=== PATIENT | female | born 1985 | race Caucasian/White ===

== ENCOUNTER 2017-02-05 22:19 | Emergency (ER) | payer MEDICAID ==
--- NOTE | 2017-02-05 22:32 | Emergency Department Record ---
History of Present Illness - General Chief Complaint: Abdominal Pain Stated Complaint: LOWER ABD PAIN Time Seen by Provider: 02/05/17 22:30 Source: Patient Mode of Arrival: Ambulatory Limitations: No limitations - History of Present Illness Initial Comments: The patient has had sharp stabbing pelvic pain bilaterally off and on for 2-3 days. The pain intermittently radiates to the R back. She denies any dysuria, vaginal discharge or bleeding. She did contact her OB and was told it may be an ovarian problem but was unable to be seen in the office. The patient's last menses was a month ago. MD Complaint: Abdominal pain Onset/Timin -: Days(s) Location: Suprapubic Radiation: Back Severity: Moderate Consistency: Intermittent Improves With: Rest Worsens With: Movement Associated Symptoms: Nausea - Related Data LMP (females 10-50): 1 month ago Home Medications Medication Instructions Recorded Confirmed Last Taken Albuterol Sulfate [Ventolin Hfa] 1 - 2 puff IH .EVERY 4-6 HOURS PRN 02/05/1707/24 Unknown Montelukast Sodium [Singulair] 10 mg PO QHS 02/05/17 02/05/17 Unknown Previous Rx's Medication Instructions Recorded Metronidazole [Flagyl] 500 mg PO BID #14 tablet 02/05/17 Naproxen [Naprosyn] 250 mg PO BID #14 tablet 02/05/17 Allergies Allergy/AdvReac Type Severity Reaction Status Date / Time cefaclor [From Ceclor] Allergy HIVES Verified 02/05/17 22:30 Travel Screening - Travel/Exposure Within Last 30 Days Have you traveled within the last 30 days?: No - Travel/Exposure Within Last Year Have you traveled outside the [place] in the last year?: No - Additonal Travel Details Have you been exposed to anyone with a communicable illness?: No - Travel Symptoms Symptom Screening: None Review of Systems Constitutional: Denies: Chills, Fever Eyes: Denies: Eye discharge ENT: Denies: Congestion Respiratory: Denies: Cough, Dyspnea Past Medical History - SOCIAL HISTORY Smoking Status: Never smoker Alcohol Use: Occasional Drug Use: None - RESPIRATORY Hx Respiratory Disorders: Yes Hx Asthma: Yes - CARDIOVASCULAR Hx Cardio Disorders: No - NEURO Hx Neuro Disorders: No - GI Hx GI Disorders: No - Hx Genitourinary Disorders: No - ENDOCRINE Hx Endocrine Disorders: No - MUSCULOSKELETAL Hx Musculoskeletal Disorders: No - PSYCH Hx Psych Problems: No - HEMATOLOGY/ONCOLOGY Hx Hematology/Oncology Disorders: No Family Medical History Any Significant Family History?: No Physical Exam - General General Appearance: Alert, Oriented x3, Cooperative, No acute distress - Head Head exam: Atraumatic, Normocephalic, Normal inspection - Eye Eye exam: Normal appearance, PERRL - Neck Neck exam: Normal inspection, Full ROM. negative: Tenderness - Respiratory Respiratory exam: Normal lung sounds bilaterally. negative: Respiratory distress - Cardiovascular Cardiovascular Exam: Regular rate, Normal rhythm, Normal heart sounds - GI/Abdominal GI/Abdominal exam: Soft, Tenderness (There is mild lower abdominal tenderness bilaterally with a very soft abdomen.). negative: Distended, Rebound, Rigid - exam: Normal bimanual exam, Normal external exam, Normal speculum exam. negative: Adnexal mass (L), Adnexal mass (R), Adnexal tenderness (L), Adnexal tenderness (R), Cervical discharge, cervical motion tenderness, Enlarged uterus , Vaginal bleeding, Vaginal discharge, Vaginal erythema - Extremities Extremities exam: Normal inspection, Full ROM, Normal capillary refill. negative: Tenderness - Neurological Neurological exam: Alert, Normal gait. negative: Abnormal gait, Motor sensory deficit Course Vital Signs 02/05/17 22:21 Temperature 98.3 F Pulse Rate 72 Respiratory 20 Rate Blood Pressure 144/90 Pulse Ox 96 - Reevaluation(s) Reevaluation #1: The patient is doing very well at this time. Her pain is pretty much gone at this time. On exam her abdomen is soft and nontender in all 4 quads. I did explain to her the need for a pelvic US which we are unable to perform tonight. Due to that fact I did recommend transfer to [facility] for the US which is where her [employer] doctor works. The patient would like to wait on the US and would like to return here to [facility] for the exam. She understands by waiting if the pain is caused by a torsed ovary she could risk loosing the ovary which could lead to a much bigger surgery and postoperative course. The patient also understands we cannot be held liable for NOT performing the US or transfer due to the fact she is electing to return to [facility] for the exam. 02/05/17 23:32 Medical Decision Making - Lab Data Result diagrams: 02/05/17 22:40 02/05/17 22:40 Disposition Disposition: Discharge Clinical Impression: Pelvic pain Disposition: Home, Self-Care Condition: (1) Good Instructions: Pelvic Pain in Women (ED) Additional Instructions: Please use the [place] if needed tonight for pain. Start the Flagyl as directed for the Bacterial Vaginosis. Please return to the ER at 7:30 for recheck and to have a pelvic US completed. Please use the Naprosyn for pain if needed. Prescriptions: Metronidazole [Flagyl] 500 mg PO BID #14 tablet Naproxen [Naprosyn] 250 mg PO BID #14 tablet Forms: Patient Portal Access Time of Disposition: 23:31 Quality - Quality Measures Quality Measures: N/A - Blood Pressure Screening View Details: Yes Blood Pressure Classification: Hypertensive Reading Systolic Measurement: 144 Diastolic Measurement: 90 Screening for High Blood Pressure: < Pre-Hypertensive BP, F/U Documented > [ G8950] Pre-Hypertensive Follow-up Interventions: Follow-up with rescreen every year.
[2017-02-05 22:46] LABS: BASO % 0.3 % (0-6); EOS % 3.9 % (0-6); GRAN % 57.1 % (47-80); HEMATOCRIT 37.7 % (35.0-47.0); HEMOGLOBIN 12.6 gm/dl (11.6-16.0); LYMPH % 33.5 % (16-45); MEAN CELL VOLUME 85.1 fl (81-97); MEAN CORPUSCULAR HEMOGLOBIN 28.4 pg (27-33); MEAN CORPUSCULAR HGB CONC 33.4 g/dl (32-36); MEAN PLATELET VOLUME 9.8 fl (7.4-10.4); MONO % 5.2 % (0-9); PLATELET COUNT 270 K/uL (130-400); RED BLOOD COUNT 4.43 M/uL (3.80-5.40); RED CELL DISTRIBUTION WIDTH 13.8 % (11.5-14.5); WHITE BLOOD COUNT W/O DIFF 9.7 K/uL (4.2-12.2)
[2017-02-05] MEDS: 0.9 % SODIUM CHLORIDE 1,000 ML BAG IV ONE (22:46)
[2017-02-05] MEDS: ONDANSETRON HCL IV 4 MG/2 ML VIAL IV ONE (22:46)
[2017-02-05 22:47] LABS: HCG,QUALITATIVE URINE NEGATIVE (NEGATIVE); URINE APPEARANCE CLEAR; URINE BILIRUBIN NEGATIVE (NEGATIVE); URINE BLOOD NEGATIVE (NEGATIVE); URINE COLOR YELLOW; URINE GLUCOSE (UA) NEGATIVE (NEGATIVE); URINE KETONE NEGATIVE (NEGATIVE); URINE LEUKOCYTE ESTERASE NEGATIVE (NEGATIVE); URINE NITRITE NEGATIVE (NEGATIVE); URINE PROTEIN NEGATIVE (NEGATIVE); URINE UROBILINOGEN 0.2 E.U./dL (0.20 - 1.00)
[2017-02-05 22:57] LABS: ALBUMIN 4.5 gm/dL (3.5-5.0); ALKALINE PHOSPHATASE 72 U/L (38-126); ALT/SGPT 40 U/L (9-52); ANION GAP 9.3 (7-16); AST/SGOT 23 U/L (14-36); BILIRUBIN,TOTAL 0.79 mg/dL (0.2-1.3); BLOOD UREA NITROGEN 16 mg/dL (7-17); CARBON DIOXIDE 24.7 mmol/L (22-30); CREATININE 0.7 mg/dL (0.52-1.04); EST GLOMERULAR FILTRATION RATE > 60 ml/min; GLUCOSE,RANDOM 85 mg/dL (70-110); LIPASE 49 U/L (23-300); TOTAL PROTEIN 7.6 gm/dL (6.3-8.2)
[2017-02-05] MEDS: KETOROLAC 30 MG/ML VIAL IVP ONE (22:58)
[2017-02-05] MEDS: HYDROCODONE/APAP 5/325MG TABLET PO ONE (23:35)
[2017-02-07 15:05] LABS: GC SPECIMEN TYPE Vaginal
== END 2017-02-05 23:38 | disposition home or self-care (01) ==
LOC: ER 22:19
DX: R10.2 Pelvic and perineal pain (principal); R11.0 Nausea; M54.5 Low back pain
CPT/HCPCS: 80048; 80076; 81003; 81025; 83690; 85025; 87210; 96374; 96375; 99284; J1885; J2405; J7030

== ENCOUNTER 2017-02-06 07:24 | Emergency (ER) | payer MEDICAID ==
--- NOTE | 2017-02-06 08:27 | Emergency Department Record ---
History of Present Illness - General Chief Complaint: Recheck - Other Stated Complaint: U/S Time Seen by Provider: 02/06/17 08:12 - History of Present Illness Initial Comments: patients abdominal pain is doing better but still painful at times and I informed her some of the culture tests are not back yet and they take 3 days and went over the ultasound result with her. follicles with some fluid in pelvis. Her abd is soft on exam and no guarding or rebound and only hurting on the right lower quad now. No Peritoneal signs. No vaginal bleeding. She had a baby and just finished breast feeding and her first two periods were 60 days apart. this may be midcycle till her periods adjust back to a 30 day cycle. Onset/Timin -: Days(s) Initial Visit For: Other Returns Today for: Other Symptoms Since Prior Visit: No new symptoms Associated Symptoms: Abdominal pain Treatments Prior to Arrival: Given pain medications on initial visit - Related Data Home Medications Medication Instructions Recorded Confirmed Last Taken Albuterol Sulfate [Ventolin Hfa] 1 - 2 puff IH .EVERY 4-6 HOURS PRN 02/05/1708/2402/06/17 Montelukast Sodium [Singulair] 10 mg PO QHS 02/05/17 02/06/17 02/06/17 Previous Rx's Medication Instructions Recorded Metronidazole [Flagyl] 500 mg PO BID #14 tablet 02/05/17 Naproxen [Naprosyn] 250 mg PO BID #14 tablet 02/05/17 Hydrocodone/Acetaminophen [[place] 1 each PO Q6HR #10 tablet 02/06/17 5-325 Tablet] Allergies Allergy/AdvReac Type Severity Reaction Status Date / Time cefaclor [From Ceclor] Allergy HIVES Verified 02/06/17 07:28 Travel Screening - Travel/Exposure Within Last 30 Days Have you traveled within the last 30 days?: No - Travel/Exposure Within Last Year Have you traveled outside the [place] in the last year?: No - Additonal Travel Details Have you been exposed to anyone with a communicable illness?: No - Travel Symptoms Symptom Screening: None Review of Systems Reviewed: No additional complaints except as noted below Constitutional: Reports: As per HPI. Denies: Chills, Fever, Malaise, Night sweats, Weakness, Weight change Eyes: Reports: As per HPI. Denies: Eye discharge, Eye pain, Photophobia, Vision change ENT: Reports: As per HPI. Denies: Congestion, Dental pain, Ear pain, Epistaxis , Hearing loss, Throat pain Respiratory: Reports: As per HPI. Denies: Cough, Dyspnea, Hemoptysis, Stridor, Wheezes Cardiovascular: Reports: As per HPI. Denies: Arrhythmia, Chest pain, Dyspnea on exertion, Edema, Murmurs, Orthopnea, Palpitations, Paroxysmal nocturnal dyspnea, Rheumatic Fever, Syncope Endocrine: Reports: As per HPI. Denies: Fatigue, Heat or cold intolerance, Polydipsia, Polyuria Gastrointestinal: Reports: As per HPI. Denies: Abdominal pain, Constipation, Diarrhea, Hematemesis, Hematochezia, Melena, Nausea, Vomiting Genitourinary: Reports: As per HPI. Denies: Abnormal menses, Discharge, Dyspareunia, Dysuria, Frequency, Hematuria, Incontinence, Retention, Urgency Musculoskeletal: Reports: As per HPI. Denies: Arthralgia, Back pain, Gout, Joint swelling, Myalgia, Neck pain Skin: Reports: As per HPI. Denies: Bruising, Change in color, Change in hair/ nails, Lesions, Pruritus, Rash Neurological: Reports: As per HPI. Denies: Abnormal gait, Confusion, Headache, Numbness, Paresthesias, Seizure, Tingling, Tremors, Vertigo, Weakness Psychiatric: Reports: As per HPI. Denies: Anxiety, Auditory hallucinations, Depression, Homicidal thoughts, Suicidal thoughts, Visual hallucinations Hematological/Lymphatic: Reports: As per HPI. Denies: Anemia, Blood Clots, Easy bleeding, Easy bruising, Swollen glands Past Medical History - SOCIAL HISTORY Smoking Status: Never smoker Alcohol Use: Occasional Drug Use: None - RESPIRATORY Hx Respiratory Disorders: Yes Hx Asthma: Yes - CARDIOVASCULAR Hx Cardio Disorders: No - NEURO Hx Neuro Disorders: No - GI Hx GI Disorders: No - Hx Genitourinary Disorders: No - ENDOCRINE Hx Endocrine Disorders: No - MUSCULOSKELETAL Hx Musculoskeletal Disorders: No - PSYCH Hx Psych Problems: No - HEMATOLOGY/ONCOLOGY Hx Hematology/Oncology Disorders: No Family Medical History Any Significant Family History?: No Physical Exam - General General Appearance: Alert, Oriented x3, Cooperative, No acute distress - Head Head exam: Normal inspection - Eye Eye exam: Normal appearance, PERRL Pupils: Normal accommodation - ENT ENT exam: Normal exam, Mucous membranes moist, Normal external ear exam, Normal orophraynx, TM's normal bilaterally Ear exam: Normal external inspection. negative: External canal tenderness Nasal Exam: Normal inspection. negative: Discharge, Sinus tenderness Mouth exam: Normal external inspection, Tongue normal Teeth exam: Normal inspection. negative: Dental caries Throat exam: Normal inspection. negative: Tonsillar erythema, Tonsillar exudate - Neck Neck exam: Normal inspection, Full ROM. negative: Tenderness - Respiratory Respiratory exam: Normal lung sounds bilaterally. negative: Respiratory distress - Cardiovascular Cardiovascular Exam: Regular rate, Normal rhythm, Normal heart sounds - GI/Abdominal GI/Abdominal exam: Soft, Normal bowel sounds, Tenderness (right lower quad) - Rectal Rectal exam: Deferred - exam: Deferred - Extremities Extremities exam: Normal inspection, Full ROM, Normal capillary refill. negative: Tenderness - Back Back exam: Reports: Normal inspection, Full ROM. Denies: Muscle spasm, Rash noted, Tenderness - Neurological Neurological exam: Alert, Normal gait, Oriented X3, Reflexes normal - Psychiatric Psychiatric exam: Normal affect, Normal mood - Skin Skin exam: Dry, Intact, Normal color, Warm Course Vital Signs 02/06/17 07:29 Temperature 97.6 F Pulse Rate 70 Respiratory 18 Rate Blood Pressure 120/85 Pulse Ox 97 Disposition Clinical Impression: Midcycle pain, Pelvic pain Abdominal pain Qualifiers: Abdominal location: right lower quadrant Qualified Code(s): R10.31 - Right lower quadrant pain Disposition: Home, Self-Care Condition: (1) Good Instructions: Ovarian Cyst (ED) Additional Instructions: follow up with [facility] in 2 to 5 days sooner if pain is getting worse return to ED if pain worse, fill naprosyn and flagyl scripts use norco if severe pain Prescriptions: Hydrocodone/Acetaminophen [[place] 5-325 Tablet] 1 each PO Q6HR #10 tablet Forms: Patient Portal Access Time of Disposition: 09:39 Quality - Quality Measures Quality Measures: N/A - Blood Pressure Screening Blood Pressure Classification: Pre-Hypertensive BP Reading Systolic Measurement: 120 Diastolic Measurement: 85 Screening for High Blood Pressure: < Pre-Hypertensive BP, F/U Documented > [ G8950] Pre-Hypertensive Follow-up Interventions: Follow-up with rescreen every year.
--- NOTE | 2017-02-07 07:21 | ULTRASOUND REPORT ---
DATE: 02/06/2017 at 7:42 a.m. EXAM: EMERGENCY PELVIC ULTRASOUND WITH TRANSVAGINAL AND DOPPLER. HISTORY: Right-sided pain for three days. TECHNIQUE: Real-time ultrasound examination of the pelvis was performed utilizing transabdominal and transvaginal technique. Because of pain, Doppler ultrasound was performed in color flow and spectral analysis. COMPARISON: No prior pelvic ultrasound. FINDINGS: Transabdominal pelvic images: Uterus identified measuring approximately 4.8 cm in AP by 5.9 cm in transverse diameters and 9.2 cm in length. The uterus is somewhat retroverted in position. Endometrial stripe measured at about 6.3 mm in diameter. No intrauterine fluid collection or focal uterine myometrial mass identified. The right ovary is relatively poorly seen but measured at about 2.8 cm in length with no right adnexal mass evident. The left ovary is not clearly seen in the transabdominal approach, but no left adnexal mass is evident. No free fluid is evident. Transvaginal pelvic images: In an effort to better visualize the gynecologic viscera, transvaginal study was also performed. The uterus again seen to be somewhat retroverted. A small amount of free fluid in the pelvis, nonspecific and may just be physiologic. No intrauterine fluid collection or focal uterine myometrial mass evident. The endometrium is measured at 6.3 mm in thickness; within normal limits. There does appear to be a couple of small cervical Nabothian cysts present. The left ovary is identified measuring 4.1 cm in size and contains several small follicles, all approximately 1.0 cm in size or less. Arterial and venous flow evident in the left ovary with color flow and spectral analysis Doppler. The right ovary is also identified, measuring about 4.3 cm in size and also containing several small follicles; again all approximately 1.0 cm in size or less. Arterial and venous flow evident in the right ovary with color flow and spectral analysis Doppler. IMPRESSION: 1. A SOMEWHAT RETROVERTED UTERUS. A COUPLE OF TINY CERVICAL NABOTHIAN CYSTS. 2. BILATERAL SMALL OVARIAN FOLLICLES, ALL APPROXIMATELY 1.0 CM IN SIZE OR LESS. 3. A SMALL AMOUNT OF NONSPECIFIC FREE FLUID IN THE PELVIS. JOB NUMBER: [id number] MTDD
== END 2017-02-06 09:57 | disposition home or self-care (01) ==
LOC: ER 07:24
DX: R10.2 Pelvic and perineal pain (principal); N94.0 Mittelschmerz
CPT/HCPCS: 76830; 76856; 99283

== ENCOUNTER 2018-02-22 16:44 | Emergency (ER) | payer MEDICAID ==
--- NOTE | 2018-02-22 17:03 | Emergency Department Record ---
History of Present Illness - General Chief Complaint: Pain Stated Complaint: PAIN FROM WAIST DOWN Time Seen by Provider: 02/22/18 16:48 Source: Patient Mode of Arrival: Ambulatory Limitations: No limitations - History of Present Illness Initial Comments: 32 yo female presents with about one week of pelvic pain. She just finished her recent menstrual cycle. The pain is low, sharp and crampy. The menstrual cycle had occurred after a three month pause. She had similar symptoms one year ago. She was seen in the ED and had an US. No fevers. She has some low back ache as well. The pain has been fairly steady for a week. No fever, chills, vomiting or diarrhea. The pain goes across the lower abdomen equally. No surgeries or pregnancies since her visit February of 2017. She does have a vaginal discharge without bleeding that is new. MD Complaint: Abdominal pain Onset/Timin -: Week(s) Location: Suprapubic, Other (Pelvic) Radiation: Suprapubic Migration to: Suprapubic Severity: Moderate Quality: Cramping, Sharp Consistency: Constant Improves With: Rest Worsens With: Movement Associated Symptoms: Other - Related Data LMP Date: 02/14/18 Home Medications Medication Instructions Recorded Confirmed Last Taken Meloxicam [Mobic] 15 mg PO ASDIR 02/22/18 02/22/18 Unknown Terbinafine HCl 250 mg PO DAILY 02/22/18 02/22/18 Unknown Previous Rx's Medication Instructions Recorded Metronidazole [Flagyl] 500 mg PO BID #14 tablet 02/22/18 Naproxen [Naprosyn] 500 mg PO BID #20 tablet 02/22/18 Allergies Allergy/AdvReac Type Severity Reaction Status Date / Time cefaclor [From [facility]] Allergy HIVES Verified 02/22/18 16:56 Travel Screening - Travel/Exposure Within Last 30 Days Have you traveled within the last 30 days?: No Review of Systems Constitutional: Denies: Chills, Fever, Malaise, Weakness Eyes: Denies: Eye discharge ENT: Denies: Congestion, Throat pain Respiratory: Denies: Cough Cardiovascular: Denies: Chest pain Endocrine: Denies: Fatigue Gastrointestinal: Reports: As per HPI, Abdominal pain. Denies: Diarrhea, Vomiting Genitourinary: Reports: Abnormal menses, Discharge, Dyspareunia. Denies: Dysuria, Frequency, Retention Musculoskeletal: Denies: Back pain Skin: Denies: Bruising, Change in color, Rash Neurological: Denies: Headache Psychiatric: Denies: Anxiety Hematological/Lymphatic: Denies: Blood Clots, Easy bleeding, Easy bruising Past Medical History - SOCIAL HISTORY Smoking Status: Never smoker Drug Use: None - RESPIRATORY Hx Respiratory Disorders: Yes Hx Asthma: Yes - CARDIOVASCULAR Hx Cardio Disorders: No - NEURO Hx Neuro Disorders: No - GI Hx GI Disorders: No - Hx Genitourinary Disorders: No - ENDOCRINE Hx Endocrine Disorders: No - MUSCULOSKELETAL Hx Musculoskeletal Disorders: No - PSYCH Hx Psych Problems: No - HEMATOLOGY/ONCOLOGY Hx Hematology/Oncology Disorders: No Physical Exam - General General Appearance: Alert, Oriented x3, Cooperative, No acute distress Limitations: No limitations - Head Head exam: Atraumatic - Eye Eye exam: Normal appearance Pupils: Normal accommodation - ENT ENT exam: Normal exam Ear exam: Normal external inspection Nasal Exam: Normal inspection Mouth exam: Normal external inspection - Neck Neck exam: Normal inspection - GI/Abdominal GI/Abdominal exam: Soft, Tenderness (mild bilateral suprapubic tenderness to palpation). negative: Distended, Guarding, Hypoactive bowel sounds, Rebound - Rectal Rectal exam: Normal inspection - exam: Adnexal tenderness (L), Adnexal tenderness (R), Cervical discharge ( slight), Normal external exam, Vaginal discharge. negative: Adnexal mass (L), Adnexal mass (R), cervical motion tenderness, Vaginal bleeding - Extremities Extremities exam: Normal inspection - Back Back exam: Reports: CVA tenderness (R), CVA tenderness (L) - Neurological Neurological exam: Alert, Oriented X3 - Psychiatric Psychiatric exam: Normal affect, Normal mood. negative: Agitated, Anxious - Skin Skin exam: Dry, Intact, Normal color, Warm Course Vital Signs 02/22/18 16:53 Temperature 97.7 F Pulse Rate 80 Respiratory 20 Rate Blood Pressure 128/76 Pulse Ox 97 - Reevaluation(s) Reevaluation #1: The vitals were reviewed. No abnormalities 02/22/18 17:25 The UA is negative for acute infection The HCG is negative The Wet Prep was read as no trick and no yeast. 02/22/18 17:29 The patient is doing well. Her pain is controlled. We discussed whether she has any risks for STD's. She is and monogomous. We did discuss prior clue cells on examination. I offered flagyl at this time, NSAIDS, and return if worse for US. I informed her US is not available at [facility] at this time and I could arrange a transfer today. She states her pain is mild, she will follow up with her OB this week or return or be seen at a facility with US over the weekend. Disposition Disposition: Discharge Clinical Impression: Pelvic pain Disposition: Home, Self-Care Condition: (1) Good Instructions: Pelvic Pain in Women (ED) Additional Instructions: You will need to be immediately if you pain returns, fever, vomiting, bleeding Call your OB first of the week for close follow up No alcohol while on the Flagyl Prescriptions: Metronidazole [Flagyl] 500 mg PO BID #14 tablet Naproxen [Naprosyn] 500 mg PO BID #20 tablet Forms: Patient Portal Access Time of Disposition: 17:33 Quality - Quality Measures Quality Measures: N/A - Blood Pressure Screening Does Patient Have Any of the Following: No Blood Pressure Classification: Pre-Hypertensive BP Reading Systolic Measurement: 128 Diastolic Measurement: 76 Screening for High Blood Pressure: < Pre-Hypertensive BP, F/U Documented > [ G8950] Pre-Hypertensive Follow-up Interventions: Referral to alternative/primary care provider.
[2018-02-22] MEDS ORDERED: KETOROLAC 30 MG/ML VIAL IM ONE (17:13)
[2018-02-22 17:18] LABS: URINE APPEARANCE CLEAR; URINE BILIRUBIN NEGATIVE (NEGATIVE); URINE BLOOD NEGATIVE (NEGATIVE); URINE COLOR YELLOW; URINE GLUCOSE (UA) NEGATIVE (NEGATIVE); URINE KETONE NEGATIVE (NEGATIVE); URINE LEUKOCYTE ESTERASE NEGATIVE (NEGATIVE); URINE NITRITE NEGATIVE (NEGATIVE); URINE PROTEIN NEGATIVE (NEGATIVE); URINE UROBILINOGEN 0.2 E.U./dL (0.20 - 1.00)
[2018-02-22 17:20] LABS: HCG,QUALITATIVE URINE NEGATIVE (NEGATIVE)
[2018-02-22] MEDS ORDERED: METRONIDAZOLE 250 MG TABLET PO ONE (17:31)
[2018-02-22] MEDS ORDERED: HYDROCODONE/APAP 7.5/325MG TABLET PO ONE (17:31)
[2018-02-24 16:04] LABS: GC SPECIMEN TYPE Vaginal
== END 2018-02-22 17:45 | disposition home or self-care (01) ==
LOC: ER 16:44
DX: R10.2 Pelvic and perineal pain (principal); M54.5 Low back pain
CPT/HCPCS: 99283 ×2; 96372; 81003; 81025; Q0111; J1885; 87210